=== PATIENT | female | born 1940 | race Caucasian/White ===

== ENCOUNTER 2024-10-09 06:30 | Inpatient (IN) | payer MEDICARE, OTHER, SELFPAY ==
[2024-09-25 10:21] LABS: Hematocrit 39.8 % (37.0-47.0); Hemoglobin 13.7 g/dL (12.0-16.0); Mean Corp Hgb Conc. 34.4 g/dL (33.0-37.0); Mean Corpuscular Hgb 31.6 pg (27.0-31.0); Mean Corpuscular Volume 91.7 fL (81.0-99.0); Mean Platelet Volume 9.8 fL (7.4-10.4); Platelet Count 268 10^3/uL (130-400); Red Blood Cell Count 4.34 10^6/uL (4.20-5.40); Red Cell Dist. Width 12.6 % (11.5-14.5); White Blood Cell Count 6.6 10^3/uL (4.8-10.8)
[2024-09-25 10:57] LABS: ALT (SGPT) 11 U/L (0-35); AST (SGOT) 19 U/L (14-36); Albumin 4.4 g/dl (3.5-5.0); Alkaline Phosphatase 91 U/L (38-126); Blood Urea Nitrogen 18 mg/dl (7-17); Calcium 9.4 mg/dl (8.4-10.2); Carbon Dioxide 31 mmol/L (22-30); Chloride 97 mmol/L (98-107); Glucose 109 mg/dl (70-99); Potassium 3.7 mmol/L (3.5-5.1); Sodium 135 mmol/L (135-145); Total Bilirubin 0.9 mg/dl (0.2-1.3); Total Protein 6.8 g/dl (6.3-8.2); eGFR > 60.00
[2024-09-25 11:59] LABS: Glycohemoglobin (HgbA1c) 5.6 % (4.0-5.6)
[2024-09-25 14:12] VITALS: BMI 40.2
[2024-10-03 09:47] VITALS: BMI 40.2
--- NOTE | 2024-10-05 13:36 | CM ---
Addendum entered by Shakila Mtz RN 10/09/24 11:58:
Made aware by Jolene/Pam, that [facility] has an MSSP Prpgram that is separate from the one that [facility] has. In order to qualify for the MSSP program through [facility] for her to go to skilled level of care at [facility] without a 3 night qualify , her [facility]
PCP needs to see or have a televisit with her within 72 hrs of her being admitted to SNF to confirm that she is in need of skilled level of care. VM left for Rhona Lockhart at [facility], Update to CM.
Original Note:
Received text from Pre-Admissions that per Ramona at surgeons office , patient would like to go to [facility] post-op and [facility] reached out to them stating she would qualify for the MSSP Program through [facility] and they have space for
her. Please contact Rhona Shabazz at [phone] at [facility] once patient has had surgery.
[2024-10-09] VITALS (10 sets, daily range): BP systolic 105–155; BP diastolic 37–73
[2024-10-09] MEDS: TYLENOL 650 MG PO ×2 (07:20→17:15)
[2024-10-09] MEDS: CELEBREX 200 MG PO (07:20)
--- NOTE | 2024-10-09 08:12 | W.DS.TRANS ---
DC Summary - Healthcare Recruiter
-
Discharge Instructions:
Sleep Apnea Risk Intermediate
Discharge Diagnosis/Procedures R TKA 10/09/24
Diet As tolerated
Activity With Walker
Driving Restrictions No driving
Bathing Restrictions OK to Shower
Other Services PT
Instructions:
Stand-Alone Forms: Total Hip/Knee Replacement D/C
Changes to Home Medications: Yes
Discharge Medications:
DC Medications w/original date entered in [employer]
ascorbic acid (vitamin C) 500 mg tablet (Vitamin C) 1,000 mg PO DAILY 10/03/24
biotin 10,000 mcg capsule 10,000 mcg PO DAILY 10/03/24
cetirizine 10 mg tablet (Zyrtec) 10 mg PO DAILY 10/03/24
cholecalciferol (vitamin D3) 125 mcg (5,000 unit) tablet (Vitamin D3) 125 mcg PO DAILY 10/03/24
furosemide 20 mg tablet (Lasix) 20 mg PO DAILY 10/03/24
gabapentin 300 mg capsule 300 mg PO BID 10/03/24
hydrochlorothiazide 12.5 mg tablet 12.5 mg PO QPM 10/03/24
levothyroxine 50 mcg tablet 50 mcg PO DAILY 10/03/24
lidocaine 5 % topical patch 1 patch topical DAILY back pain 10/03/24
metoprolol tartrate 50 mg tablet 50 mg PO BID 10/03/24
mupirocin 2 % topical ointment 1 applic topical BID 10/03/24
omeprazole 20 mg capsule,delayed release 20 mg PO DAILY 10/03/24
rosuvastatin 10 mg tablet 10 mg PO HS 10/03/24
vitamins A,C,N-jqyj-ydqyps 2,148 mcg-113 mg-45 mg-17.4 mg tablet (PreserVision AREDS) 1 tab PO DAILY 10/03/24
zolpidem 5 mg tablet 5 mg PO HS 10/03/24
acetaminophen 500 mg tablet 1,000 mg (2 x 500 mg) PO QID #0 tabs 10/09/24
aspirin 325 mg tablet 325 mg PO DAILY blood clot prevention #1 tab 10/09/24
celecoxib 100 mg capsule 100 mg PO BID Anti-inflammatory #14 caps 10/09/24
dexamethasone 4 mg tablet 4 mg PO BID inflammation #6 tabs 10/09/24
docusate sodium 100 mg capsule (Colace) 100 mg PO BID stool softner #1 cap 10/09/24
magnesium hydroxide 400 mg/5 mL oral suspension (Milk of Magnesia) 30 ml PO HS PRN Constipation #1 mL 10/09/24
ondansetron 4 mg disintegrating tablet 4 mg PO Q6H PRN n/v #20 tabs 10/09/24
oxycodone 5 mg tablet 5 mg PO Q6H PRN 1 tab moderate pain, 2 tabs severe pain #30 tabs 10/09/24
sennosides 8.6 mg tablet (Senokot) 17.2 mg (2 x 8.6 mg) PO BID laxative #2 tabs 10/09/24
Home Medication Changes
acetaminophen 500 mg tablet 1,000 mg (2 x 500 mg) PO QID #0 tabs 10/09/24
aspirin 325 mg tablet 325 mg PO DAILY blood clot prevention #1 tab 10/09/24
celecoxib 100 mg capsule 100 mg PO BID Anti-inflammatory #14 caps 10/09/24
dexamethasone 4 mg tablet 4 mg PO BID inflammation #6 tabs 10/09/24
docusate sodium 100 mg capsule (Colace) 100 mg PO BID stool softner #1 cap 10/09/24
magnesium hydroxide 400 mg/5 mL oral suspension (Milk of Magnesia) 30 ml PO HS PRN Constipation #1 mL 10/09/24
ondansetron 4 mg disintegrating tablet 4 mg PO Q6H PRN n/v #20 tabs 10/09/24
oxycodone 5 mg tablet 5 mg PO Q6H PRN 1 tab moderate pain, 2 tabs severe pain #30 tabs 10/09/24
sennosides 8.6 mg tablet (Senokot) 17.2 mg (2 x 8.6 mg) PO BID laxative #2 tabs 10/09/24
Pending Results: No
[2024-10-09] MEDS: ROXICODONE 5 MG PO (10:58)
[2024-10-09] MEDS: TYLENOL PO ×3 (11:21→21:00)
[2024-10-09] MEDS: NORMOSOL-R/PLASMALYTE-A 1000 IV (11:45)
--- NOTE | 2024-10-09 15:10 | OR.RPT ---
Operative Report
Operative Report
Orthopaedic Surgery Operative Note
DATE OF OPERATION: 10/09/2024
PREOPERATIVE DIAGNOSES: Osteoarthritis, right knee.
POSTOPERATIVE DIAGNOSES: Osteoarthritis, right knee.
OPERATION PERFORMED: Right total knee arthroplasty (75457 with 22 modifier)
SURGEON: Alcides Drummond MD
ASSISTANTS: Calvin Dowd PA-C who helped with patient and limb positioning and retraction
ANESTHESIA: Spinal
COMPLICATIONS: None.
ESTIMATED BLOOD LOSS: 20mL
DRAINS: None
TOURNIQUET TIME: 50 minutes.
IMPLANTS:
- Augustus Persona CR Femur, size 8
- Augustus Persona tibia base plate, size D
- Augustus Persona medial constrained articular surface, 10 mm
INDICATIONS: The patient presented to my office with debilitating right knee pain due to osteoarthritis. We reviewed the natural history of this problem, as well as the risks, benefits, and alternatives of various treatment options. The patient
exhausted all nonoperative treatment options and wished to proceed with knee replacement surgery. The patient understood the risks which included, but were not limited to, bleeding, infection, failure to relieve pain, more pain than preop, damage to
blood vessels and nerves, need for reoperation, mechanical failure of the implants, wound healing problems, stiffness, instability, blood clot, pulmonary embolism, myocardial infarction, pneumonia, arrhythmia, CVA, and . The patient accepted
these risks and wished to proceed. All questions were answered, and informed consent was obtained.
PROCEDURE IN DETAIL: The patient was identified in the preoperative holding area. The right knee was identified as the operative site. The patient was taken in the operating room and placed in a supine position on the operating table. Spinal
anesthesia was performed. IV antibiotics and tranexamic acid were administered. An SCD was placed on the left lower extremity. A well-padded tourniquet was placed on the proximal thigh. All bony prominences were well padded. The right lower
extremity was prepped and draped in the usual sterile fashion.
We performed a surgical time-out. An interarticular block was performed with local anesthetic with epinephrine. The limb was exsanguinated with an Esmarch bandage, then the tourniquet was inflated to 250 mmHg. A midline skin incision was made
followed by a medial parapatellar arthrotomy. A subperiosteal peel was performed on the medial tibia. I excised part of the infrapatellar fat pad to improve our visualization as well as tissue over anterior femur. The patella was everted and the
knee was flexed. I excised the remnants of the anterior and posterior cruciate ligaments as well as tibial and femoral osteophytes with rongeurs.
The knee was flexed, and the extramedullary tibial cutting guide was aligned. [place] was aligned at neutral, rotation was centered on the tibial tubercle, and coronal alignment was aligned with the mechanical axis of the tibia and center of the ankle
joint. The cut height was 10mm off the lateral tibia joint surface. The guide was secured into place. The MCL and LCL were protected. The tibia surface was cut. The cut surface was inspected after removal to ensure appropriate height and slope based
on the preoperative plan. The cut was checked with a drop ck. It was centered nicely at the ankle.
A drill was used to open the femoral canal. The intramedullary distal femoral cutting guide was inserted into the femur. This was set at 5 degrees +0. This was secured into place with three pins. The cut level was checked with an félix wing. The
distal femur was cut through the cutting guide. The IM guide was reinserted to double check that the level of resection was flush and in appropriate alignment.
[place]�s line and the transepicondylar axis were marked on the femur. The femoral sizing guide was applied to the anterior femur. Pins were inserted, and the 4-in-1 cutting guide was applied and secured into place. The rotation was compared to
[place]�s line, the transepicondylar axis, and the neutral tibia cut and was found to be appropriate. The width was checked and found to be appropriate and lateralized on the femur. The anterior, posterior, and chamfur cuts were made. A lamina
insurance sales representative was used to open the flexion gap, and posterior osteophytes were removed with a curved osteotome. The remnant medial and lateral meniscus were also removed. I prophylactically cauterized the lateral geniculate arteries. A 10mm spacer block
was applied to the flexion gap and was noted to be balanced medially and laterally. The knee was extended, and the block showed symmetric to extension and flexion gaps.
The tibia was exposed and sized. Rotation was set in line with the tibial tubercle and congruent with the femur. The trial was secured into place with two pins. The trial femur was impacted into place, and a trial articular surface was placed. The
knee was taken through range of motion and noted to be stable throughout the arc of motion without gaping or excess tension. The patella tracked centrally throughout the arc of motion without need for further releases. No full thickness cartilage
defects
The trials were removed. The tibia keel was prepared with the punch and the drill. The bone surfaces were irrigated with sterile saline and dried. The cement was mixed in a vacuum mixer. Cement gun was used to apply cement to the tibial surface and
the undersurface of the tibial implant. Cement was pressurized into the tibial canal and tibia surface. The tibial component was impacted into place. Excess cement was removed. Cement was applied to the femoral surface and the femoral component. The
femoral component was impacted into place, and excess cement removed. A trial articular surface was inserted, and the knee was extended while the cement polymerized. The tourniquet was let down, and meticulous hemostasis was achieved. Dilute
betadine was poured into the wound and allowed to soak for 3 minutes. The knee was irrigated with copious normal saline.
Once the cement was polymerized, the trial articular surface was removed. Any excess cement was removed. The knee was trialed, and the final articular surface was selected and inserted into the tibial locking mechanism. The knee was reduced. A fresh
drape was applied to the surgical field.
The arthrotomy was closed with 0-PDS. Once closed, an interarticular block was performed with local anesthetic with epi. The deep dermal layer was closed with 2-0 PDS, and the subcuticular skin was closed with 3-0 monocryl. A Dermabond Prineo
dressing was applied to the skin in full flexion. Once this was completely dry, a sterile waterproof dressing was applied.
The anesthesia team performed an adductor canal block in the OR. The patient awoke from anesthesia without any difficulties. The sponge and instrument counts were correct x2 at the end of the case.
Of note, 22 modifier was added for BMI >40kg/m2 which added 20 additional minutes for positioning, exposure, and implanting the components
Amadou Drummond MD
--- NOTE | 2024-10-09 15:31 | CM ---
Met with pt and her daughter at bedside
Pt reports she lives in an apartment in independent living at [facility]
Pt reports independent with ADL's, has family support, ambulates with rolling walker at baseline
DME - rolling walker, single point cane, shower chair, grab bar - tub, raised toilet seat, toilet rails
SNF - from community and plans to go to rehab at [facility] when discharged from hospital
HH - denies past hx
PCP - [facility] Rosalind Zimmerman
Pharm - [facility]
Spoke with Jolene from [facility]. Pt may qualify for [facility] waiver program. Scheduled for tele-med appt with PCP in AM at 8:45. Pt and her daughter aware. Verified phone number with pt. Pts and daughter's phone numbers given to Jolene. When updated, Jolene
requesting PT eval and clinicals be faxed to PCP - contact, Kassie Ram at [phone].
Spoke with Rhona Lockhart at [facility] - Referral sent in Care Port - will send PT/OT evals when available - pt known to facility
Plan - anticipate transfer to [facility] when medially stable and auth obtained
[2024-10-09] MEDS: ANCEF 5 IV ×2 (15:48→23:28)
[2024-10-09] MEDS: ZOFRAN 4 MG IV ×2 (15:48→22:19)
--- NOTE | 2024-10-09 15:55 | PTCARENOTE ---
Called [facility] for foot pumps to be sent to [address] [place] [address] for this patient
[2024-10-09] MEDS: NEURONTIN 300 MG PO ×2 (17:15→22:59)
[2024-10-09] MEDS: ASPIRIN 325 MG PO (17:15)
[2024-10-09] MEDS: COMPAZINE 5 MG PO (19:53)
[2024-10-09] MEDS: ULTRAM PO (21:00)
[2024-10-09] MEDS: SENOKOT PO (21:00)
[2024-10-09] MEDS: TORADOL 15 MG IV (21:00)
[2024-10-09] MEDS: DECADRON 6 MG IV (21:00)
[2024-10-09] MEDS: COLACE PO (21:00)
[2024-10-09] MEDS: BACTROBAN 2% OINTMENT 1 APPLIC NASAL (21:00)
[2024-10-09] MEDS: CRESTOR 10 MG PO (22:59)
[2024-10-09] MEDS: AMBIEN 5 MG PO (22:59)
[2024-10-09] MEDS: PROTONIX 40 MG PO (22:59)
[2024-10-10] MEDS: TYLENOL PO (00:26)
--- NOTE | 2024-10-10 02:44 | DOWNTIME ---
There was a [employer] Client Builder Operator Downtime on 10/10/2024 from 0100 to 10/10/2023 at 0205 . Downtime documentation of patient's care, including medication administrations, has been reconciled in the electronic record per guidelines. Refer to the
patient's paper chart under the miscellaneous tab to see printed paper medication records and downtime forms.
[2024-10-10 03:30] VITALS: BP 127/73
[2024-10-10] MEDS: TYLENOL 650 MG PO ×3 (03:40→13:00)
[2024-10-10] MEDS: SYNTHROID 50 MCG PO (06:18)
[2024-10-10 07:10] VITALS: BP 140/59
[2024-10-10 09:30] VITALS: BP 117/54; O2SAT 94
[2024-10-10] MEDS: BACTROBAN 2% OINTMENT 1 APPLIC NASAL (09:33)
[2024-10-10] MEDS: DECADRON 6 MG IV (09:34)
[2024-10-10] MEDS: TORADOL 15 MG IV (09:37)
[2024-10-10] MEDS: ASPIRIN 325 MG PO (09:38)
[2024-10-10] MEDS: COLACE 100 MG PO (09:38)
[2024-10-10] MEDS: SENOKOT 17.2 MG PO (09:39)
[2024-10-10] MEDS: NEURONTIN 300 MG PO (09:39)
[2024-10-10] MEDS: ULTRAM 50 MG PO (09:40)
--- NOTE | 2024-10-10 10:33 | W.PN.ORTHO ---
Today's Communication / Plan
-
d/c
Assessment
.
Distal Motor Intact: Yes
Dressing:
Clean, dry and intact.
Plan
.
Surgery / Date: R TKA 10/09/24
DVT Prophylaxis: Aspirin
Activity:
Out of bed.
PT/OT
Discharge Plan: SNF
Subjective
.
.:
Patient resting comfortably.
Vital Signs and Labs
.
Vital Signs and Labs:
Lab Results
09/25/24 09:41
09/25/24 09:41
Temp Pulse Resp BP Pulse Ox
98.2 F 86 16 117/54 93
10/10/24 07:10 10/10/24 07:10 10/10/24 07:10 10/10/24 09:39 10/10/24 09:00
Non-invasive Hgb result: 15.8
Physical Exam
-
HEENT: No pallor, cyanosis, or jaundice. Throat clear.
NECK: Supple. No JVD.
RESPIRATORY: Lungs clear to auscultation.
CVS: S1, S2 normal. RRR.� No murmur, rub or gallop.
ABDOMEN: Soft, non-tender. No distension. BS+/normal.
EXTREMITIES: strength equal, no calf pain with palpation
DIRECTOR OF INDUSTRIAL RELATIONS: AOx3. No focal deficits. mobile home servicer grossly intact
[2024-10-10 10:34] VITALS: BP 117/54
--- NOTE | 2024-10-10 11:07 | CM ---
Addendum entered by Vandana Crowell 10/10/24 12:09:
Per Jolene with Pam - auth approved and to be faxed to facility
Spoke with Rhona Fernando at [facility] - can accept
Plan - transfer to [facility]
R - [phone]
F - [phone]
Original Note:
Chart reviewed. Met with pt and her daughter at bedside
Pt reports had telemed appt this AM with her PCP
PT/OT evals completed
Spoke with Jolene with [facility] - PCP sent updated note/clinical info to [facility] - awaiting auth approval for MSSP program
Pt/family updated
Updated clinical information sent to [facility] in Care Port
LM with Rhona Fernando on VM - will need pharm info prior to discharge
Plan - anticipate transfer to [facility] when auth obtained
[2024-10-10 11:27] VITALS: BP 130/48
[2024-10-10] MEDS: CELEBREX 200 MG PO (14:10)
== END 2024-10-10 14:46 | DRG 470 ==
LOC: 2 SOUTH 06:30
PROVIDERS: ADMITTING PHYSICIAN Orthopaedic Surgery; FAMILY PHYSICIAN Family Medicine; REFERRING PHYSICIAN Internal Medicine Cardiovascular Disease
PROC: 0SRC0J9 Replacement of Right Knee Joint with Synthetic Substitute, Cemented, Open Approach (ICD-10-PCS; 2024-10-09)
DX: M17.11 Unilateral primary osteoarthritis, right knee (principal); Z68.41 Body mass index [BMI] 40.0-44.9, adult; Z79.82 Long term (current) use of aspirin; I10 Essential (primary) hypertension; M48.061 Spinal stenosis, lumbar region without neurogenic claudication; Z88.0 Allergy status to penicillin
CPT/HCPCS: 36415; 73560; 80053; 83036; 85027; 87070; 97110; 97116; 97163; 97167; 97530; 97535; C1713; C1776

== ENCOUNTER → 2025-01-01 10:19 | Outpatient (REF) | payer MEDICARE, OTHER, SELFPAY | LOC: RAD 10:19 | PROVIDERS: ATTENDING PHYSICIAN Student in an Organized Health Care Education/Training Program; FAMILY PHYSICIAN Family Medicine | DX: Z96.651 Presence of right artificial knee joint (principal); M17.12 Unilateral primary osteoarthritis, left knee | CPT/HCPCS: 76882 ==